=== PATIENT | male | born 2000 | race Hispanic/Latino ===

== ENCOUNTER 2022-09-06 17:54 | Emergency (ER) | payer OTHER ==
[~2022-09-06] VITALS: Ht 172.7 cm; Wt 86.3 kg
[2022-09-06] MEDS ORDERED: ZITHROMAX250 MG PO (19:05)
[2022-09-06] MEDS ORDERED: BROMFED DM COU118 ML PO (19:05)
== END 2022-09-06 19:30 | disposition home or self-care (01) ==
LOC: FSED 18:00
DX: R05.9 Cough, unspecified (principal); J02.9 Acute pharyngitis, unspecified; J06.9 Acute upper respiratory infection, unspecified
CPT/HCPCS: 83518; 87400; 99283